=== PATIENT | male | born 1950 | race Two or more races ===

== ENCOUNTER 2020-11-29 11:00 | Inpatient (IN) | payer OTHER ==
[~2020-11-29] VITALS: Ht 167.6 cm; Wt 94.3 kg
[2020-11-29] MEDS ORDERED: ALTACE10 MG PO (13:06)
[2020-11-29] MEDS ORDERED: HYDROCHLOROTH12.5 MG PO (13:07)
[2020-11-29] MEDS ORDERED: [UNRECOGNIZED DRUG - CODE] (13:08)
[2020-11-29] MEDS ORDERED: TRIDESILON60 GM (13:09)
[2020-12-02] MEDS ORDERED: OMEGA-3 ACID ETH1 GM (16:47)
[2020-12-02] MEDS ORDERED: CICLOPIROX15 GM (16:47)
[2020-12-05] MEDS ORDERED: PERCOCET 5-3251 EACH PO (12:32)
[2020-12-05] MEDS ORDERED: PRILOSEC OTC20 MG PO (12:32)
== END 2020-12-05 12:52 | disposition home or self-care (01) | DRG 330 ==
LOC: O/R 12-02 05:55 → SURH 12-02 05:55 → SURG 12-02 18:13 → SURH 12-02 18:20
PROVIDERS: ADMIT Surgery; ATTEND Surgery
PROC: 07BD3ZX Excision of Aortic Lymphatic, Percutaneous Approach, Diagnostic (ICD-10-PCS; 2020-12-02)
PROC: 3E0F7SF Introduction of Other Gas into Respiratory Tract, Via Natural or Artificial Opening (ICD-10-PCS; 2020-12-02)
PROC: 4A033R1 Measurement of Arterial Saturation, Peripheral, Percutaneous Approach (ICD-10-PCS; 2020-12-02)
PROC: 4A12X4Z Monitoring of Cardiac Electrical Activity, External Approach (ICD-10-PCS; 2020-12-02)
PROC: 0DTH0ZZ Resection of Cecum, Open Approach (ICD-10-PCS; principal; 2020-12-02 08:45)
DX: C18.0 Malignant neoplasm of cecum (principal); K62.5 Hemorrhage of anus and rectum; R59.0 Localized enlarged lymph nodes; Z20.822 Contact with and (suspected) exposure to COVID-19